=== PATIENT | female | born 1990 | race Caucasian/White ===

== ENCOUNTER 2020-07-08 02:45 | Emergency (ER) | payer OTHER ==
[~2020-07-08] VITALS: Ht 160 cm; Wt 95.3 kg
[2020-07-08 02:50] VITALS: BP 129/78
--- NOTE | 2020-07-08 02:50 | NUR ---
to bed ambulatory
--- NOTE | 2020-07-08 03:11 | NUR ---
Dr. Borrego examining patient.
[2020-07-08] MEDS: LIDOCAINE/PRILOCAINE 2.5% 5 GM TUBE TP ONE (03:44)
[2020-07-08] MEDS ORDERED: HYDR-2734 TP (03:46)
[2020-07-08 04:02] VITALS: BP 129/78
--- NOTE | 2020-07-08 04:02 | NUR ---
Patient discharged with v/s stable. Written and verbal after care instructions given and explained. Patient alert, oriented and verbalized understanding of instructions. Ambulatory with steady gait. All questions addressed prior to discharge. ID band removed. Patient advised to follow up with PMD. Rx of HYDROCORTISONE given. Patient educated on indication of medication including possible reaction and side effects. Opportunity to ask questions provided and answered.
== END 2020-07-08 04:02 | disposition home or self-care (01) ==
LOC: MED 02:45
DX: K64.4 Residual hemorrhoidal skin tags (principal); Z88.6 Allergy status to analgesic agent
CPT/HCPCS: 99282